=== PATIENT | female | born 1970 | race Two or more races ===

== ENCOUNTER 2022-08-07 21:51 | Inpatient (IN) | payer OTHER ==
[2022-08-07 21:56] VITALS: BMI 37.5
[2022-08-07] MEDS ORDERED: ONDANSETRON 4 MG/2 ML VIAL IVPUSH ONE (23:16)
[2022-08-07] MEDS ORDERED: FAMOTIDINE 20 MG/50 ML IVPB 20 MG/50 ML MG IVPB ONE ×2 (23:16→23:24)
[2022-08-07] MEDS ORDERED: MAG HYDROX/AL HYDROX/SIMETH 30 ML UNIT-DOSE CUP PO ONE (23:16)
[2022-08-07] MEDS ORDERED: MAG HYDROX/AL HYDROX/SIMETH 30 ML UNIT-DOSE CUP ONE (23:24)
[2022-08-07] MEDS ORDERED: ONDANSETRON 4 MG/2 ML VIAL ONE (23:24)
[2022-08-07 23:43] LABS: BASO % 0.8 % (0-2.0); EOS % 1.5 % (0-4.5); HEMOGLOBIN 11.4 GM/dL (10.7-15.3); LYMPH % 37.7 % (8-40); MCH 27.4 pg (25.7-33.7); MCHC 32.5 g/dl (32.0-36.0); MEAN CELL VOLUME 84.3 fl (80-96); MEAN PLT VOLUME 7.4 fl (7.5-11.1); MONO % 12.9 % (3.8-10.2); NEUT % 47.1 % (42.8-82.8); PLATELET COUNT 312 10^3/uL (134-434); RBC 4.15 M/mm3 (3.60-5.2); RDW 16.1 % (11.6-15.6); WHITE BLOOD COUNT 4.9 K/mm3 (4.0-10.0)
[2022-08-07] MEDS ORDERED: SODIUM CHLORIDE 500 ML IV STA (23:43)
[2022-08-07 23:49] LABS: INR 1.09 (0.83-1.09); PROTHROMBIN TIME (PATIENT) 12.6 SEC (9.7-13.0)
[2022-08-07 23:52] LABS: ACTIVATED PTT 29.3 SECONDS (25.2-36.5)
[2022-08-08 00:02] LABS: CHLORIDE 106 mmol/L (98-107); SODIUM 139 mmol/L (136-145)
[2022-08-08 00:04] LABS: CALCIUM 8.9 mg/dL (8.5-10.1)
[2022-08-08 00:05] LABS: ALBUMIN 2.9 g/dl (3.4-5.0); ANION GAP 6 MMOL/L (8-16); BLOOD UREA NITROGEN 11.4 mg/dL (7-18); CO2 26 mmol/L (21-32); GLUCOSE,RANDOM 292 mg/dL (74-106)
[2022-08-08 00:06] LABS: LIPASE 374 U/L (73-393)
[2022-08-08 00:08] LABS: CREATININE 0.7 mg/dL (0.55-1.3); SGOT/AST 24 U/L (15-37); SGPT/ALT 48 U/L (13-61)
[2022-08-08 00:10] LABS: BILIRUBIN,TOTAL 0.4 mg/dL (0.2-1); TOT PROT 6.5 g/dl (6.4-8.2)
[2022-08-08 00:11] LABS: ALK PHOS 146 U/L (45-117)
[2022-08-08] MEDS ORDERED: ASPIRIN 81 MG CHEWABLE TABLETS PO ONE (02:19)
[2022-08-08] MEDS ORDERED: ASPIRIN 81 MG CHEWABLE TABLETS ONE (03:11)
[2022-08-08 03:16] LABS: PH,URINE 6.5 (5.0-8.0); URINE APPEARANCE CLEAR; URINE BILIRUBIN NEGATIVE (NEGATIVE); URINE COLOR YELLOW; URINE GLUCOSE (UA) TRACE (NEGATIVE); URINE KETONE NEGATIVE (NEGATIVE); URINE LEUK ESTERASE NEGATIVE (NEGATIVE); URINE NITRITE NEGATIVE (NEGATIVE); URINE PROTEIN TRACE (NEGATIVE); URINE UROBILINOGEN 0.2 mg/dL (0.2-1.0)
[2022-08-08] MEDS ORDERED: SODIUM CHLORIDE 0.9% 500 ML INFUS.BAG IV ONE (03:33)
[2022-08-08 05:18] LABS: N-TERMINAL BNP 153.2 pg/ml (5-125)
[2022-08-08] MEDS ORDERED: ENOXAPARIN NA (PORCINE) 40 MG/0.4 ML DISP.SYRIN SQ SCH (06:06)
[2022-08-08] MEDS ORDERED: ENOXAPARIN NA (PORCINE) 100 MG/1 ML DISP.SYRIN SQ ONE ×2 (06:12→10:19)
[2022-08-08 06:16] LABS: MAGNESIUM 1.6 mg/dL (1.8-2.4)
[2022-08-08 06:20] LABS: PHOSPHOROUS 2.6 mg/dL (2.5-4.9)
[2022-08-08 06:22] LABS: ARTERIAL BLD GAS O2 SATURATION 95.9 % (95-98); ARTERIAL BLOOD GAS BASE EXCESS -2.5 mmol/L (-2-2); ARTERIAL BLOOD GAS PO2 79.9 mmHg (80-100); ARTERIAL BLOOD GAS pH 7.401 (7.350-7.450)
[2022-08-08 06:23] LABS: ALLENS TEST POSITIVE
[2022-08-08 06:36] LABS: BASO % 0.7 % (0-2.0); HEMATOCRIT 34.1 % (32.4-45.2); HEMOGLOBIN 11.1 GM/dL (10.7-15.3); LYMPH % 28.5 % (8-40); MCH 27.3 pg (25.7-33.7); MCHC 32.6 g/dl (32.0-36.0); MEAN CELL VOLUME 83.8 fl (80-96); MEAN PLT VOLUME 7.9 fl (7.5-11.1); NEUT % 56.8 % (42.8-82.8); PLATELET COUNT 296 10^3/uL (134-434); RBC 4.06 M/mm3 (3.60-5.2); RDW 16.2 % (11.6-15.6); WHITE BLOOD COUNT 5.6 K/mm3 (4.0-10.0)
[2022-08-08 06:43] LABS: CALCIUM 8.3 mg/dL (8.5-10.1)
[2022-08-08 06:44] LABS: ALBUMIN 2.7 g/dl (3.4-5.0); BLOOD UREA NITROGEN 9.4 mg/dL (7-18)
[2022-08-08 06:46] LABS: CREATININE 0.6 mg/dL (0.55-1.3)
[2022-08-08 06:47] LABS: BILIRUBIN,TOTAL 0.4 mg/dL (0.2-1)
[2022-08-08 06:48] LABS: TOT PROT 6.2 g/dl (6.4-8.2)
[2022-08-08] MEDS ORDERED: ENOXAPARIN NA (PORCINE) 100 MG/1 ML DISP.SYRIN SQ SCH (07:13)
[2022-08-08] MEDS: INSULIN SLIDING SCALE (NOVOLOG) 1 VIAL SQ SCH ×3 (09:11→18:47)
[2022-08-08] MEDS ORDERED: MAGNESIUM OXIDE 400 MG TABLET (FP) PO ONE (09:21)
[2022-08-08] MEDS ORDERED: metoPROLOL SUCCINATE 25 MG TAB.SR.24H (FP) PO SCH (10:00)
[2022-08-08] MEDS ORDERED: FAMOTIDINE 10 MG TABLET ONE (10:18)
[2022-08-08] MEDS ORDERED: ASPIRIN COATED 81 MG TABLET.EC ONE (10:18)
[2022-08-08] MEDS ORDERED: PANTOPRAZOLE 40 MG TABLET PO ONE (10:18)
[2022-08-08] MEDS ORDERED: metoPROLOL SUCCINATE 25 MG TAB.SR.24H (FP) PO ONE ×3 (10:19→15:38)
[2022-08-08] MEDS ORDERED: TAPENTADOL HYDROCHLORIDE 50 MG TABLET PO ONE (10:19)
[2022-08-08] MEDS: ASPIRIN COATED 81 MG TABLET.EC PO SCH (10:20)
[2022-08-08] MEDS: FAMOTIDINE 10 MG TABLET PO SCH (10:20)
[2022-08-08] MEDS: POLYETHYLENE GLYCOL (HEALTHYLAX) 3350 17 GM PACKET PO SCH ×4 (10:21→22:30)
[2022-08-08] MEDS: METHIMAZOLE 10 MG TABLET PO SCH ×2 (10:21→22:31)
[2022-08-08] MEDS: PANTOPRAZOLE 40 MG TABLET PO SCH (10:21)
[2022-08-08 13:43] LABS: OPIATES, URI NEGATIVE (NEGATIVE)
[2022-08-08 13:44] LABS: COCAINE, UR NEGATIVE (NEGATIVE); METHADONE, UR NEGATIVE (NEGATIVE); PHENCYCLIDINE,URINE NEGATIVE (NEGATIVE)
[2022-08-08 13:46] LABS: URINE BENZODIAZEPINES NEGATIVE (NEGATIVE)
[2022-08-08 13:51] LABS: URINE AMPHETAMINES NEGATIVE (NEGATIVE); URINE BARBITURATES NEGATIVE (NEGATIVE)
[2022-08-08] MEDS ORDERED: POLYETHYLENE GLYCOL (HEALTHYLAX) 3350 17 GM PACKET ONE (15:39)
[2022-08-08] MEDS ORDERED: MAGNESIUM SULF 50% (8.12 MEQ/2 ML-1 GM VIAL) IVPB ONE (15:58)
[2022-08-08] MEDS ORDERED: ACETAMINOPHEN 1000 MG/100 ML BAG IVPB PRN (17:42)
[2022-08-08] MEDS ORDERED: ONDANSETRON 4 MG/2 ML VIAL IVPUSH PRN (17:56)
[2022-08-08] MEDS ORDERED: LISINOPRIL 20 MG TABLET PO ONE (18:28)
[2022-08-08] MEDS ORDERED: LISINOPRIL 20 MG TABLET ONE (18:39)
[2022-08-08] MEDS: ENOXAPARIN NA (PORCINE) 100 MG/1 ML DISP.SYRIN SQ SCH (22:30)
[2022-08-08] MEDS: ATORVASTATIN CA 40 MG TABLET (FP) PO SCH (22:31)
[2022-08-08] MEDS: INSULIN (LEVEMIR) 100 UNITS/ML UNITS SQ SCH (22:31)
[2022-08-09] MEDS: INSULIN SLIDING SCALE (NOVOLOG) 1 VIAL SQ SCH ×3 (06:52→17:04)
[2022-08-09 07:41] LABS: BASO % 1.2 % (0-2.0); EOS % 2.2 % (0-4.5); HEMATOCRIT 35.1 % (32.4-45.2); HEMOGLOBIN 11.3 GM/dL (10.7-15.3); MCH 26.8 pg (25.7-33.7); MCHC 32.1 g/dl (32.0-36.0); MEAN CELL VOLUME 83.4 fl (80-96); MEAN PLT VOLUME 8.1 fl (7.5-11.1); MONO % 16.7 % (3.8-10.2); NEUT % 30.9 % (42.8-82.8); PLATELET COUNT 313 10^3/uL (134-434); RBC 4.21 M/mm3 (3.60-5.2); RDW 15.8 % (11.6-15.6); WHITE BLOOD COUNT 3.6 K/mm3 (4.0-10.0)
[2022-08-09 08:05] LABS: ALBUMIN 2.8 g/dl (3.4-5.0)
[2022-08-09 08:07] LABS: BILIRUBIN,TOTAL 0.4 mg/dL (0.2-1); TOT PROT 6.3 g/dl (6.4-8.2)
[2022-08-09 08:09] LABS: CALCIUM 8.7 mg/dL (8.5-10.1); CREATININE 0.5 mg/dL (0.55-1.3); MAGNESIUM 1.9 mg/dL (1.8-2.4); PHOSPHOROUS 3.2 mg/dL (2.5-4.9)
[2022-08-09] MEDS: FAMOTIDINE 10 MG TABLET PO SCH (09:53)
[2022-08-09] MEDS: POLYETHYLENE GLYCOL (HEALTHYLAX) 3350 17 GM PACKET PO SCH ×4 (09:53→21:28)
[2022-08-09] MEDS: INSULIN (LEVEMIR) 100 UNITS/ML UNITS SQ SCH ×3 (09:53→21:29)
[2022-08-09] MEDS: PANTOPRAZOLE 40 MG TABLET PO SCH (09:54)
[2022-08-09] MEDS: METHIMAZOLE 10 MG TABLET PO SCH ×2 (09:54→21:29)
[2022-08-09] MEDS: ASPIRIN COATED 81 MG TABLET.EC PO SCH (09:54)
[2022-08-09] MEDS: ENOXAPARIN NA (PORCINE) 100 MG/1 ML DISP.SYRIN SQ SCH ×2 (09:54→21:29)
[2022-08-09] MEDS: LISINOPRIL 20 MG TABLET PO SCH (09:54)
[2022-08-09] MEDS: ATORVASTATIN CA 40 MG TABLET (FP) PO SCH (21:29)
[2022-08-10] MEDS: INSULIN SLIDING SCALE (NOVOLOG) 1 VIAL SQ SCH ×3 (06:43→17:40)
[2022-08-10] MEDS: INSULIN (LEVEMIR) 100 UNITS/ML UNITS SQ SCH ×2 (06:45→22:11)
[2022-08-10 09:09] LABS: BASO % 0.9 % (0-2.0); HEMATOCRIT 37.7 % (32.4-45.2); HEMOGLOBIN 12.6 GM/dL (10.7-15.3); LYMPH % 40.5 % (8-40); MCH 27.8 pg (25.7-33.7); MCHC 33.6 g/dl (32.0-36.0); MEAN PLT VOLUME 8.2 fl (7.5-11.1); MONO % 12.6 % (3.8-10.2); PLATELET COUNT 340 10^3/uL (134-434); RBC 4.54 M/mm3 (3.60-5.2); RDW 15.6 % (11.6-15.6); WHITE BLOOD COUNT 5.8 K/mm3 (4.0-10.0)
[2022-08-10 09:46] LABS: ALBUMIN 3.1 g/dl (3.4-5.0)
[2022-08-10 09:48] LABS: BLOOD UREA NITROGEN 9.8 mg/dL (7-18)
[2022-08-10 09:50] LABS: BILIRUBIN,TOTAL 0.4 mg/dL (0.2-1)
[2022-08-10 09:51] LABS: CREATININE 0.6 mg/dL (0.55-1.3)
[2022-08-10 09:52] LABS: TOT PROT 7.4 g/dl (6.4-8.2)
[2022-08-10 09:54] LABS: CALCIUM 9.4 mg/dL (8.5-10.1)
[2022-08-10] MEDS: ENOXAPARIN NA (PORCINE) 100 MG/1 ML DISP.SYRIN SQ SCH ×2 (11:04→21:56)
[2022-08-10] MEDS: POLYETHYLENE GLYCOL (HEALTHYLAX) 3350 17 GM PACKET PO SCH ×4 (11:04→21:55)
[2022-08-10] MEDS: ASPIRIN COATED 81 MG TABLET.EC PO SCH (11:05)
[2022-08-10] MEDS: FAMOTIDINE 10 MG TABLET PO SCH (11:05)
[2022-08-10] MEDS: LISINOPRIL 20 MG TABLET PO SCH (11:05)
[2022-08-10] MEDS: METHIMAZOLE 10 MG TABLET PO SCH ×2 (11:05→21:55)
[2022-08-10] MEDS: PANTOPRAZOLE 40 MG TABLET PO SCH (11:05)
[2022-08-10] MEDS: ATORVASTATIN CA 40 MG TABLET (FP) PO SCH (21:55)
[2022-08-11] MEDS: INSULIN (LEVEMIR) 100 UNITS/ML UNITS SQ SCH (06:22)
[2022-08-11] MEDS: INSULIN SLIDING SCALE (NOVOLOG) 1 VIAL SQ SCH ×3 (06:42→17:10)
[2022-08-11 08:17] LABS: BASO % 0.6 % (0-2.0); EOS % 1.3 % (0-4.5); HEMATOCRIT 35.1 % (32.4-45.2); HEMOGLOBIN 11.9 GM/dL (10.7-15.3); LYMPH % 47.2 % (8-40); MCH 27.8 pg (25.7-33.7); MCHC 33.9 g/dl (32.0-36.0); MEAN CELL VOLUME 82.2 fl (80-96); MEAN PLT VOLUME 8.2 fl (7.5-11.1); MONO % 12.6 % (3.8-10.2); NEUT % 38.3 % (42.8-82.8); PLATELET COUNT 326 10^3/uL (134-434); RBC 4.27 M/mm3 (3.60-5.2); RDW 15.4 % (11.6-15.6); WHITE BLOOD COUNT 5.1 K/mm3 (4.0-10.0)
[2022-08-11] MEDS: amLODIPine BESYLATE 2.5 MG TABLET (FP) PO ONE ×2 (08:28→08:40)
[2022-08-11 08:29] VITALS: BP 134/90; PULSE 90; RESP 18; TEMP 98.8
[2022-08-11 08:37] LABS: BLOOD UREA NITROGEN 10.1 mg/dL (7-18); CALCIUM 8.9 mg/dL (8.5-10.1)
[2022-08-11 08:40] LABS: CREATININE 0.5 mg/dL (0.55-1.3)
[2022-08-11] MEDS: LISINOPRIL 20 MG TABLET PO SCH ×2 (08:41→10:55)
[2022-08-11] MEDS ORDERED: INSULIN (NOVOLOG) ASPART 100 UNITS/ML 10ML VIAL ONE (13:03)
[2022-08-11] MEDS: PANTOPRAZOLE 40 MG TABLET PO SCH (13:10)
[2022-08-11] MEDS: METHIMAZOLE 10 MG TABLET PO SCH (13:10)
[2022-08-11] MEDS: FAMOTIDINE 10 MG TABLET PO SCH (13:10)
[2022-08-11] MEDS: ASPIRIN COATED 81 MG TABLET.EC PO SCH (13:10)
[2022-08-11] MEDS: ENOXAPARIN NA (PORCINE) 100 MG/1 ML DISP.SYRIN SQ SCH (13:11)
[2022-08-11] MEDS: POLYETHYLENE GLYCOL (HEALTHYLAX) 3350 17 GM PACKET PO SCH ×2 (13:11→17:11)
[2022-08-11] MEDS ORDERED: ATORVASTATIN CA 20 MG TABLET (FP) PO SCH (22:00)
[2022-08-12] MEDS ORDERED: amLODIPine BESYLATE 2.5 MG TABLET (FP) PO SCH (10:00)
== END 2022-08-11 17:20 | disposition home or self-care (01) | DRG 424 ==
LOC: JER 21:51 → JERBED 08-08 03:52 → J4W 08-08 21:00
PROVIDERS: ADMIT Internal Medicine; ATTEND Internal Medicine
DX: E05.90 Thyrotoxicosis, unspecified without thyrotoxic crisis or storm (principal); I24.8 Other forms of acute ischemic heart disease; I10 Essential (primary) hypertension; E78.5 Hyperlipidemia, unspecified; K29.70 Gastritis, unspecified, without bleeding; R00.0 Tachycardia, unspecified; R11.2 Nausea with vomiting, unspecified; E66.9 Obesity, unspecified; Z68.37 Body mass index [BMI] 37.0-37.9, adult; E11.65 Type 2 diabetes mellitus with hyperglycemia
CPT/HCPCS: 36415; 36600; 71046-TC-FY; 71275-TC; 74177-TC; 76705-TC; 78452-TC; 80048; 80053; 80061; 80307; 81003; 82272; 82803; 82962; 83036; 83605; 83690; 83735; 83880; 84100; 84439; 84443; 84484; 85025; 85379; 85610; 85730; 87086; 87338; 93005; 93010; 93017; 93306-TC; 93970-TC; 97116-GP; 97161-GP; 99285-25; A9502; C9803-CS; Q9967; U0003; U0005